=== PATIENT | male | born 1975 | race Caucasian/White ===

== ENCOUNTER 2021-06-28 00:17 | Emergency (ER) | payer MEDICAID ==
[~2021-06-28] VITALS: Ht 177.8 cm; Wt 113.4 kg
[2021-06-28 00:25] VITALS: BP_SYST 147
--- NOTE | 2021-06-28 00:58 | NUR ---
Patient to ER bed 8 to gown for evaluation. Side rails up. Report given to Dorothy SHARP(marian).
--- NOTE | 2021-06-28 01:20 | NUR ---
ER at bedside examining patient.
[2021-06-28] MEDS ORDERED: HYDROcodone/ACETAMIN 10-325 MG TAB PO ONE (02:00)
[2021-06-28] MEDS ORDERED: IBUP-1969 PO (02:44)
[2021-06-28] MEDS ORDERED: HYDR-3921 PO (02:44)
[2021-06-28] MEDS ORDERED: HYDROmorphone 1 MG/ML INJ. CARTRIDGE IM ONE (02:45)
--- NOTE | 2021-06-28 02:54 | NUR ---
DILAUDID 1 MG IM GIVEN AT RT DELTOID
--- NOTE | 2021-06-28 03:00 | NUR ---
DRESSING DONE WITH XEROFORM AND WRAP WITH SOFT BANDAGE.
[2021-06-28 03:12] VITALS: BP_SYST 147
--- NOTE | 2021-06-28 03:16 | NUR ---
0310Patient given written and verbal discharge instructions and verbalizes understanding. JESUS STALLINGS MD discussed with patient the results and treatment provided. Patient in stable condition. Rx of NORCO AND IBUPROFEN given. Patient educated on pain management and to follow up with PMD. Pain Scale . Opportunity for questions provided and answered. Medication side effect fact sheet provided.
== END 2021-06-28 03:10 | disposition home or self-care (01) ==
LOC: SED 00:17
DX: S60.211A Contusion of right wrist, initial encounter (principal); S90.32XA Contusion of left foot, initial encounter; S40.812A Abrasion of left upper arm, initial encounter; S40.811A Abrasion of right upper arm, initial encounter; V29.9XXA Motorcycle rider (driver) (passenger) injured in unspecified traffic accident, initial encounter; Y93.89 Activity, other specified; Y92.89 Other specified places as the place of occurrence of the external cause; Y99.8 Other external cause status
CPT/HCPCS: 12002; 71045; 73110; 73630; 96372; 99284; J1170

== ENCOUNTER 2021-06-30 03:04 | Emergency (ER) | payer OTHER, MEDICAID ==
[~2021-06-30] VITALS: Ht 177.8 cm; Wt 97.5 kg
[~2021-06-30 03:04] MED LIST: HYDR-3921 PO; IBUP-1969 PO
[2021-06-30 03:10] VITALS: BP_SYST 157
[2021-06-30] MEDS ORDERED: MORPHINE 4 MG INJ. 4 MG/ML VIAL IVP ONE (04:15)
[2021-06-30] MEDS ORDERED: MORPHINE 4 MG INJ. 4 MG/ML VIAL ONE (04:24)
[2021-06-30] MEDS ORDERED: MORPHINE 2 MG/ML INJ. SYRINGE ONE (04:25)
[2021-06-30 04:30] VITALS: BP_SYST 140
[2021-06-30] MEDS ORDERED: HYDR-3927 PO (05:13)
== END 2021-06-30 05:34 | disposition home or self-care (01) ==
LOC: SED 03:04
DX: S40.812A Abrasion of left upper arm, initial encounter (principal); S40.811A Abrasion of right upper arm, initial encounter; V29.9XXA Motorcycle rider (driver) (passenger) injured in unspecified traffic accident, initial encounter; Y93.89 Activity, other specified; Y92.89 Other specified places as the place of occurrence of the external cause; Y99.8 Other external cause status
CPT/HCPCS: 96372; 99283; J2270 ×2

== ENCOUNTER → 2022-02-10 | Emergency (ER) | payer MEDICAID, OTHER ==
[~2022-02-10] MED LIST changes: +HYDR-3927 PO
== END | disposition left against medical advice (07) ==
LOC: SED 16:06
DX: M54.50 Low back pain, unspecified (principal); Z53.21 Procedure and treatment not carried out due to patient leaving prior to being seen by health care provider